=== PATIENT | female | born 1940 | race Caucasian/White ===

== ENCOUNTER 2018-12-04 10:07 | Emergency (ER) | payer MEDICARE ==
[~2018-12-04] VITALS: Ht 165.1 cm; Wt 72.7 kg
[~2018-12-04 10:07] MED LIST: ASPI-1264 PO; CALC-97 PO; CHOL2000 PO; LEVO50TA66 PO; LOVA40TA2 PO; OMEG1CAP13 PO; OMEP20TA23 PO; SOTA80TA73 PO
[2018-12-04 10:11] VITALS: BP 166/88
[2018-12-04] MEDS ORDERED: TETanus/Pertussis (Acell)/Diphther VAC/PF (Tdap-Adult) 0.5ml syringe IM ONE (12:10)
== END 2018-12-04 12:20 | disposition home or self-care (01) ==
LOC: ER 10:08
DX: S61.512A Laceration without foreign body of left wrist, initial encounter (principal); I25.10 Atherosclerotic heart disease of native coronary artery without angina pectoris; Z88.0 Allergy status to penicillin; Z79.82 Long term (current) use of aspirin; Z79.899 Other long term (current) drug therapy; Z87.891 Personal history of nicotine dependence; W26.8XXA Contact with other sharp object(s), not elsewhere classified, initial encounter; Y93.89 Activity, other specified; Y92.89 Other specified places as the place of occurrence of the external cause; Y99.8 Other external cause status
CPT/HCPCS: 90471; 90715; 99283

== ENCOUNTER 2019-08-17 06:57 | Day surgery (SDC) | payer MEDICARE ==
[~2019-08-17] VITALS: Ht 162.6 cm; Wt 74.7 kg
[2019-08-17] VITALS (15 sets, daily range): BP systolic 108–156; BP diastolic 56–88
[2019-08-17] MEDS ORDERED: APIX5TAB3 PO (07:22)
[2019-08-17] MEDS ORDERED: amiodarone in dextrose, iso-osm 150mg/100ml bag IV ONE (07:25)
[2019-08-17] MEDS ORDERED: LORazepam 0.5 MG tablet PO ONE (07:25)
[2019-08-17] MEDS ORDERED: normal saline 1000ml 1,000 ML IV SCH ×2 (07:25→09:00)
[2019-08-17] MEDS ORDERED: diphenhydrAMINE 25mg capsule PO ONE (07:25)
[2019-08-17] MEDS ORDERED: MIDAZolam 1mg/ml 10ml vial IV ONE (07:25)
[2019-08-17] MEDS ORDERED: atropine 0.1mg/ml 10ml syringe IV ONE (07:25)
[2019-08-17] MEDS ORDERED: morphine 10mg/ml inj. IV ONE (07:25)
[2019-08-17 07:58] LABS: BASOPHILS # (AUTO) 0.1 X10'3 (0-0.2); BASOPHILS % (AUTO) 1.3 % (0-1); EOSINOPHILS # (AUTO) 0.2 X10'3 (0-0.9); EOSINOPHILS % (AUTO) 2.8 % (0-6); HEMATOCRIT 37.2 % (35.0-45.0); HEMOGLOBIN 12.6 g/dl (12.0-16.0); LYMPHOCYTES # (AUTO) 1.8 X10'3 (1.1-4.8); LYMPHOCYTES % (AUTO) 28.6 % (21-51); MEAN CORPUSCULAR HEMOGLOBIN 29.6 PG (27.0-31.0); MEAN CORPUSCULAR HGB CONC 33.8 g/dL (33.0-36.5); MEAN CORPUSCULAR VOLUME 87.4 FL (78-98); MEAN PLATELET VOLUME 8.9 FL (7.4-10.4); MONOCYTES # (AUTO) 0.5 X10'3 (0-0.9); NEUTROPHILS # (AUTO) 3.8 X10'3 (1.8-7.7); NEUTROPHILS % (AUTO) 59.3 % (42-75); PLATELET COUNT 235 X10'3 (140-440); RED BLOOD COUNT 4.26 X10'6 (4.20-5.60); RED CELL DISTRIBUTION WIDTH 14.1 % (11.5-14.5); WHITE BLOOD COUNT 6.5 X10'3 (4.5-11.0)
[2019-08-17 08:06] LABS: ALBUMIN 3.5 G/DL (3.4-5.0); ANION GAP 10 (8-16); BLOOD UREA NITROGEN 15 MG/DL (7-18); BUN/CREATININE RATIO 18.1 (6.6-38.0); CALCIUM 8.6 MG/DL (8.5-10.1); CHLORIDE 108 MMOL/L (99-107); CREATININE 0.83 MG/DL (0.40-0.90); GLUCOSE 99 MG/DL (70-104); POTASSIUM 4.1 MMOL/L (3.5-5.1); SODIUM 141 MMOL/L (135-145); TOTAL CARBON DIOXIDE 23.3 MMOL/L (24-32); eGFR 66 ML/MIN
== END 2019-08-17 11:10 | disposition home or self-care (01) ==
LOC: SSTAY O 06:57
PROVIDERS: ATTEND Internal Medicine Cardiovascular Disease
DX: I48.91 Unspecified atrial fibrillation (principal); I48.19 Other persistent atrial fibrillation; E78.5 Hyperlipidemia, unspecified; R06.02 Shortness of breath
CPT/HCPCS: 36415; 80048; 85025; 85610; 92960; 93005; J0461; J2250; J2270; Q0163

== ENCOUNTER 2021-08-08 08:52 | Day surgery (SDC) | payer MEDICARE ==
[2021-08-07 10:28] LABS: BASOPHILS # (AUTO) 0.1 X10'3 (0-0.2); BASOPHILS % (AUTO) 1.2 % (0-1); EOSINOPHILS # (AUTO) 0.2 X10'3 (0-0.9); EOSINOPHILS % (AUTO) 2.7 % (0-6); HEMATOCRIT 39.1 % (35.0-45.0); LYMPHOCYTES # (AUTO) 1.7 X10'3 (1.1-4.8); LYMPHOCYTES % (AUTO) 29.6 % (21-51); MEAN CORPUSCULAR HGB CONC 33.2 g/dL (33.0-36.5); MEAN CORPUSCULAR VOLUME 87.2 FL (78-98); MEAN PLATELET VOLUME 8.4 FL (7.4-10.4); MONOCYTES # (AUTO) 0.6 X10'3 (0-0.9); MONOCYTES % (AUTO) 9.7 % (2-12); NEUTROPHILS # (AUTO) 3.3 X10'3 (1.8-7.7); NEUTROPHILS % (AUTO) 56.8 % (42-75); PLATELET COUNT 272 X10'3 (140-440); RED BLOOD COUNT 4.48 X10'6 (4.20-5.60); RED CELL DISTRIBUTION WIDTH 14.6 % (11.5-14.5); WHITE BLOOD COUNT 5.8 X10'3 (4.5-11.0)
[2021-08-07 10:40] LABS: APTT 26 SECONDS (22-32)
[2021-08-07 10:54] LABS: ALBUMIN 3.7 G/DL (3.4-5.0); ANION GAP 8 (8-16); BLOOD UREA NITROGEN 16 MG/DL (7-18); BUN/CREATININE RATIO 22.5 (6.6-38.0); CALCIUM 8.7 MG/DL (8.5-10.1); CHLORIDE 104 MMOL/L (99-107); CREATININE 0.71 MG/DL (0.40-0.90); GLUCOSE 92 MG/DL (70-104); POTASSIUM 4.3 MMOL/L (3.5-5.1); SODIUM 140 MMOL/L (135-145); TOTAL CARBON DIOXIDE 27.8 MMOL/L (24-32); eGFR 79 ML/MIN
[2021-08-08] VITALS (10 sets, daily range): BP systolic 119–171; BP diastolic 44–76
[~2021-08-08] VITALS: Ht 165.1 cm; Wt 70.2 kg
[~2021-08-08 08:52] MED LIST changes: +APIX5TAB3 PO; -ASPI-1264 PO; -OMEP20TA23 PO
[2021-08-08] MEDS ORDERED: CLINDAmcin 900mg/NS 50ml IVPB 50 ML IV ONE (10:00)
[2021-08-08] MEDS ORDERED: clindamycin-Cleocin 900mg/D5W 50 ML IV ONE (10:10)
[2021-08-08] MEDS ORDERED: ceFAZolin 1000mg inj ONE (12:59)
[2021-08-08] MEDS ORDERED: fentaNYL/PF 50MCG/1 ML 2ML syringe ONE (12:59)
[2021-08-08] MEDS ORDERED: midazolam 1 mg/ML 2ml injection ONE (12:59)
[2021-08-08] MEDS ORDERED: LIDOcaine 1% w/EPI 1:100,000 30ml vial (MDV) ONE (12:59)
[2021-08-08] MEDS ORDERED: clindamycin phosphate 150mg/ml inj. ONE (13:03)
[2021-08-08] MEDS ORDERED: hydrALAZINE 20mg/ml inj. IV ONE (13:25)
[2021-08-08] MEDS ORDERED: HYDROcodone/acetaminophen 5mg/325mg tablet PO PRN (14:20)
[2021-08-08] MEDS ORDERED: HYDROcodone/acetaminophen 10/325mg tab PO PRN (14:20)
[2021-08-08] MEDS ORDERED: VANCOMYCIN 1GM/200ML IVPB 200 ML IV ONE (15:00)
[2021-08-08] MEDS ORDERED: ondansetron/PF 4mg/2ml inj IV ONE (16:05)
== END 2021-08-08 18:30 | disposition home or self-care (01) ==
LOC: SSTAY O 08:52
PROVIDERS: ATTEND Internal Medicine Cardiovascular Disease
DX: Z45.010 Encounter for checking and testing of cardiac pacemaker pulse generator [battery] (principal); I48.0 Paroxysmal atrial fibrillation; E78.49 Other hyperlipidemia; I10 Essential (primary) hypertension; I34.0 Nonrheumatic mitral (valve) insufficiency; Z79.899 Other long term (current) drug therapy; Z79.01 Long term (current) use of anticoagulants; Z85.3 Personal history of malignant neoplasm of breast; Z98.890 Other specified postprocedural states; Z72.89 Other problems related to lifestyle; Z87.891 Personal history of nicotine dependence; Z88.0 Allergy status to penicillin
CPT/HCPCS: 33228; 36415; 80048; 85025; 85610; 85730; 93005; 99152; C1785; J0360; J0690; J2250; J3010; J3370; J3490; 99153; A6258; A6449

== ENCOUNTER 2022-02-13 09:02 | Emergency (ER) | payer MEDICARE ==
[~2022-02-13] VITALS: Ht 162.6 cm; Wt 68.2 kg
[2022-02-13 09:32] LABS: BASOPHILS # (AUTO) 0.1 X10'3 (0-0.2); BASOPHILS % (AUTO) 0.7 % (0-1); EOSINOPHILS # (AUTO) 0.1 X10'3 (0-0.9); EOSINOPHILS % (AUTO) 1.3 % (0-6); HEMATOCRIT 39.1 % (35.0-45.0); HEMOGLOBIN 12.9 g/dl (12.0-16.0); LYMPHOCYTES # (AUTO) 1.4 X10'3 (1.1-4.8); LYMPHOCYTES % (AUTO) 14.6 % (21-51); MEAN CORPUSCULAR HEMOGLOBIN 28.9 PG (27.0-31.0); MEAN CORPUSCULAR HGB CONC 33.1 g/dL (33.0-36.5); MEAN CORPUSCULAR VOLUME 87.4 FL (78-98); MEAN PLATELET VOLUME 8.8 FL (7.4-10.4); MONOCYTES # (AUTO) 0.8 X10'3 (0-0.9); NEUTROPHILS # (AUTO) 7.3 X10'3 (1.8-7.7); NEUTROPHILS % (AUTO) 75.4 % (42-75); PLATELET COUNT 250 X10'3 (140-440); RED BLOOD COUNT 4.47 X10'6 (4.20-5.60); RED CELL DISTRIBUTION WIDTH 14.4 % (11.5-14.5); WHITE BLOOD COUNT 9.7 X10'3 (4.5-11.0)
[2022-02-13 09:47] LABS: ALANINE AMINOTRANSFERASE 37 U/L (12-78); ALBUMIN 3.5 G/DL (3.4-5.0); ALBUMIN/GLOBULIN RATIO 0.9 (1.1-1.5); ALKALINE PHOSPHATASE 65 IU/L (46-116); ANION GAP 7 (8-16); ASPARTATE AMINO TRANSFERASE 26 U/L (10-37); BILIRUBIN,TOTAL 0.8 MG/DL (0.1-1.0); BLOOD UREA NITROGEN 17 MG/DL (7-18); BUN/CREATININE RATIO 18.7 (6.6-38.0); CHLORIDE 106 MMOL/L (99-107); CREATININE 0.91 MG/DL (0.40-0.90); GLUCOSE 109 MG/DL (70-104); POTASSIUM 4.3 MMOL/L (3.5-5.1); SODIUM 140 MMOL/L (135-145); TOTAL CARBON DIOXIDE 27.4 MMOL/L (24-32); TOTAL PROTEIN 7.3 G/DL (6.4-8.2); eGFR 59 ML/MIN
--- NOTE | 2022-02-13 10:07 | NUR ---
During assessment with MD Rayo magnet was taped to patients chest over pacemaker by him to asses pt own rhythm, advised nurse to keep it taped to her chest as he had done. Verified instructions with Perri, magnet remains taped over patient left chest where pacemaker sits. satellite project site monitor on at all times with alarms audible.
--- NOTE | 2022-02-13 12:30 | NUR ---
Reached out to russell anderson rep due to not recieving report after pacemaker was interogated at 1030 this morning.
[2022-02-13] MEDS ORDERED: metoprolol tartrate 1mg/ml inj IV ONE (13:25)
[2022-02-13 13:38] VITALS: BP 151/113
== END 2022-02-13 16:13 | disposition home or self-care (01) ==
LOC: ER 09:03
DX: T82.9XXA Unspecified complication of cardiac and vascular prosthetic device, implant and graft, initial encounter (principal); Z20.822 Contact with and (suspected) exposure to COVID-19; R06.02 Shortness of breath; R00.0 Tachycardia, unspecified; I48.91 Unspecified atrial fibrillation; Z88.0 Allergy status to penicillin; Z79.899 Other long term (current) drug therapy; X58.XXXA Exposure to other specified factors, initial encounter; Y93.89 Activity, other specified; Y92.89 Other specified places as the place of occurrence of the external cause; Y99.8 Other external cause status
CPT/HCPCS: 36415; 71045; 80053; 83880; 84484; 85025; 87811; 93005; 96374; 99285; J3490

== ENCOUNTER 2022-12-27 09:55 | Outpatient (CLI) | payer MEDICARE ==
[~2022-12-27] VITALS: Ht 163.8 cm; Wt 68.0 kg
[~2022-12-27 09:55] MED LIST changes: -OMEG1CAP13 PO
[2022-12-27 10:46] LABS: TOTAL HEMOGLOBIN 14.5 G/dl (12.0-16.0)
[2022-12-27] MEDS ORDERED: albuterol 2.5 MG/3 ML nebule NEB ONE (11:10)
== END 2022-12-27 23:59 | disposition home or self-care (01) ==
LOC: RT 09:55
PROVIDERS: ATTEND Internal Medicine Cardiovascular Disease
DX: R94.2 Abnormal results of pulmonary function studies (principal); Z79.899 Other long term (current) drug therapy
CPT/HCPCS: 85018; 94060; 94727; 94729; 94760